=== PATIENT | male | born 1935 | race Caucasian/White ===

== ENCOUNTER → 2018-09-19 10:08 | Outpatient (CLI) | payer OTHER ==
--- NOTE | 2018-09-20 09:53 | EC ---
PATIENT:AURELIA NELSON DATE OF SERVICE: 09/19/18 SEX: M MEDICAL RECORD: [id number] DATE OF : 31 LOCATION:D[facility] AGE OF PATIENT: 83 ADMISSION DATE: 09/19/18 REFERRING PHYSICIAN: INTERPRETING PHYSICIAN: REMINGTON VALENCIA MD ECHOCARDIOGRAM REPORT ECHO CHARGES 4 ECHO COMPLETE Date: 09/19/18 CLINICAL DIAGNOSIS: ISHEMIC HEART DISEASE ECHOCARDIOGRAPHIC MEASUREMENTS (adult normal given) AC root (d.<3.7cm) 3.2 cm LV Septum d (<1.2 cm> 1.2 cm Valve Excursion 1.9 cm LV Septum (systole) 1.3 cm Left Atria (s.<4.0cm> 2.6 cm LVPW d(<1.2cm) 1.0 cm RV (d.<2.3cm) 2.4 cm LVPW (sytole) 1.4 cm LV diastole(<5.6CM) 4.8 cm MV E-F(>70mm/sec) cm LV systole 3.8 cm LVOT Diameter 1.9 cm MV exc.(>10mm) cm Est.ejection fraction (50-75%) % DOPPLER: LVIT cm/sec A 101 cm/sec E 80 cm/sec LA cm/sec RVSP 28.4 mmHg LVOT 97 cm/sec AOP1/2T m/s Asc. Ao 133 cm/sec RVOT 57 cm/sec RA cm/sec PA 71 cm/sec AV Gradient Peak 7.0 mmHg AV Mean 4.1 mmHg AV Area 2.1 cm MV Gradient Peak 4.9 mmHg MV Mean 2.8 mmHg MV Area cm COMMENTS: Double Cutter: Shola ALVARADO Embryology Professor: Abner Valencia TAPE# PACS Pericardial Effusion N DATE OF SERVICE: 09/19/2018 PROCEDURE: Echocardiogram. FINDINGS: 1. Left ventricular chamber size is within normal limits. Left ventricular systolic function is preserved at 50%. 2. Left atrium, right atrium, and right ventricular chamber sizes are within normal limits. 3. Valvular structures have normal structure and motion. ECHOCARDIOGRAM REPORT [id number] AURELIA NELSON 4. Doppler interrogation only reveals trace tricuspid regurgitation, no other valvular insufficiency or stenosis. 5. No evidence of pericardial effusion or left ventricular thrombus. TRANSINT:[id number] Voice Confirmation ID: [id number] DOCUMENT ID: [id number] REMINGTON VALENCIA MD at [id number] CC: [id number] DICTATION DATE: 09/19/18 1259 APPRENTICE MACHINIST OUTSIDE: 09/19/18 1320 DEP CLI 09/19/18 [place] [id number]
== END | disposition home or self-care (01) ==
LOC: D.ECHO 10:08
PROVIDERS: ATTEND Orthopaedic Surgery
DX: I25.9 Chronic ischemic heart disease, unspecified (principal)